=== PATIENT | female | born 1990 | race Two or more races ===

== ENCOUNTER → 2017-09-03 | Outpatient (CLI) | payer OTHER | END | disposition home or self-care (01) | LOC: LAB 15:59 | PROVIDERS: ATTEND Physician Assistant | DX: Z20.9 Contact with and (suspected) exposure to unspecified communicable disease (principal) | CPT/HCPCS: 36415; 86706; 86735; 86762; 86765; 86787 ==

== ENCOUNTER → 2020-06-28 | Outpatient (CLI) | payer BC ==
[2020-06-28 10:43] LABS: Basophils # (auto) 0.1 10 ^3/uL (0-0.2); Eosinophils # (auto) 0 10 ^3/uL (0-0.8); Hemoglobin 10.8 g/dL (12.2-16.2); Monocytes # (auto) 0.3 10 ^3/uL (0-1.3); Red Cell Distribution Width 19.3 % (11.8-14.3)
[2020-06-28 10:44] LABS: Basophils % (auto) 0.7 % (0.0-2.0); Eosinophils % (auto) 0.4 % (0.0-7.0); Hematocrit 33.9 % (36.0-46.0); Lymphocytes # (auto) 2.1 10 ^3/uL (0.4-5.4); Lymphocytes % (auto) 22.3 % (10.0-50.0); Mean Corpuscular Hgb Conc. 31.8 g/dL (32.0-36.0); Mean Corpuscular Volume 72.2 fL (80.0-100.0); Monocytes % (auto) 3.4 % (0.0-12.0); Neutrophils # (auto) 6.8 10 ^3/uL (1.6-8.6); Neutrophils % (auto) 73.2 % (37.0-80.0); Platelet Count (auto) 264 10^3/uL (140-450); Red Blood Cells 4.69 10^6/uL (4.0-5.20); White Blood Cell 9.2 10^3/uL (4.4-10.8)
[2020-06-28 11:19] LABS: Amphetamine Screen, Urine NEGATIVE (NEGATIVE); Barbiturate Scree,Urine NEGATIVE (NEGATIVE); Benzodiazephine Screen, Urine NEGATIVE (NEGATIVE); Cannabinoid Screen, Urine NEGATIVE (NEGATIVE); Cocaine Screen, Urine NEGATIVE (NEGATIVE); Opiate Scree,Urine NEGATIVE (NEGATIVE); Phencyclidine Screen, Urine NEGATIVE (NEGATIVE)
[2020-06-29 06:06] LABS: RPR Non Reactive (Non Reactive)
== END | disposition home or self-care (01) ==
LOC: LAB 10:11
PROVIDERS: ATTEND Specialist
DX: Z34.80 Encounter for supervision of other normal pregnancy, unspecified trimester (principal); Z31.430 Encounter of female for testing for genetic disease carrier status for procreative management; Z20.2 Contact with and (suspected) exposure to infections with a predominantly sexual mode of transmission; Z3A.00 Weeks of gestation of pregnancy not specified
CPT/HCPCS: 36415; 80307; 81025; 81220; 83036; 84144; 84702; 85025; 86592; 86762; 86850; 86900; 86901; 87340

== ENCOUNTER → 2020-08-21 | Outpatient (CLI) | payer BC | END | disposition home or self-care (01) | LOC: LAB 10:56 | PROVIDERS: ATTEND Specialist | DX: Z34.82 Encounter for supervision of other normal pregnancy, second trimester (principal); Z3A.19 19 weeks gestation of pregnancy | CPT/HCPCS: 86703 ==

== ENCOUNTER 2020-10-25 09:57 | Observation (INO) | payer BC ==
[~2020-10-25] VITALS: Ht 175.3 cm; Wt 128.8 kg
[2020-10-25] MEDS ORDERED: PREN-96 PO (11:34)
== END 2020-10-25 11:46 | disposition home or self-care (01) ==
LOC: LDRP 09:57
PROVIDERS: ADMIT Obstetrics & Gynecology; ATTEND Obstetrics & Gynecology
DX: O36.4XX0 Maternal care for intrauterine death, not applicable or unspecified (principal); Z3A.28 28 weeks gestation of pregnancy
CPT/HCPCS: 59025; 76818; 81002; G0378

== ENCOUNTER 2020-11-01 15:17 | Observation (INO) | payer BC ==
[~2020-11-01 15:17] MED LIST: PREN-96 PO
== END 2020-11-01 17:05 | disposition home or self-care (01) ==
LOC: LDRP 15:17
PROVIDERS: ADMIT Obstetrics & Gynecology; ATTEND Obstetrics & Gynecology
DX: Z34.83 Encounter for supervision of other normal pregnancy, third trimester (principal); Z3A.29 29 weeks gestation of pregnancy; Z87.59 Personal history of other complications of pregnancy, childbirth and the puerperium; Z79.899 Other long term (current) drug therapy
CPT/HCPCS: 59025; 76818; 81002; G0378

== ENCOUNTER 2020-11-08 12:57 | Observation (INO) | payer BC | END 2020-11-08 14:20 | disposition home or self-care (01) | LOC: LDRP 12:57 | PROVIDERS: ADMIT Obstetrics & Gynecology; ATTEND Obstetrics & Gynecology | DX: Z34.83 Encounter for supervision of other normal pregnancy, third trimester (principal); Z3A.30 30 weeks gestation of pregnancy | CPT/HCPCS: 59025; 76818; 81002; G0378 ==

== ENCOUNTER 2020-11-15 10:34 | Observation (INO) | payer BC ==
[2020-11-15] MEDS ORDERED: FERR28TA2 PO (11:12)
== END 2020-11-15 11:45 | disposition home or self-care (01) ==
LOC: LDRP 10:34
PROVIDERS: ADMIT Obstetrics & Gynecology; ATTEND Obstetrics & Gynecology
DX: O09.293 Supervision of pregnancy with other poor reproductive or obstetric history, third trimester (principal); O32.1XX0 Maternal care for breech presentation, not applicable or unspecified; Z3A.31 31 weeks gestation of pregnancy
CPT/HCPCS: 59025; 76818; 81002; G0378

== ENCOUNTER 2020-11-22 08:38 | Observation (INO) | payer BC ==
[~2020-11-22 08:38] MED LIST changes: +FERR28TA2 PO
== END 2020-11-22 10:43 | disposition home or self-care (01) ==
LOC: LDRP 08:38
PROVIDERS: ADMIT Specialist; ATTEND Specialist
DX: O36.4XX0 Maternal care for intrauterine death, not applicable or unspecified (principal); O26.853 Spotting complicating pregnancy, third trimester; Z3A.32 32 weeks gestation of pregnancy
CPT/HCPCS: 59025; 76818; 81002; G0378

== ENCOUNTER 2020-11-29 08:22 | Observation (INO) | payer BC | END 2020-11-29 10:22 | disposition home or self-care (01) | LOC: LDRP 08:22 | PROVIDERS: ADMIT Obstetrics & Gynecology; ATTEND Obstetrics & Gynecology | DX: Z34.83 Encounter for supervision of other normal pregnancy, third trimester (principal); Z87.59 Personal history of other complications of pregnancy, childbirth and the puerperium; Z3A.33 33 weeks gestation of pregnancy | CPT/HCPCS: 59025; 76818; 81002; G0378 ==

== ENCOUNTER 2020-12-06 08:28 | Observation (INO) | payer BC | END 2020-12-06 09:37 | disposition home or self-care (01) | LOC: LDRP 08:28 | PROVIDERS: ADMIT Obstetrics & Gynecology; ATTEND Obstetrics & Gynecology | DX: Z34.83 Encounter for supervision of other normal pregnancy, third trimester (principal); Z87.59 Personal history of other complications of pregnancy, childbirth and the puerperium; Z3A.34 34 weeks gestation of pregnancy | CPT/HCPCS: 59025; 76818; 81002; G0378 ==

== ENCOUNTER 2020-12-13 10:25 | Observation (INO) | payer BC | END 2020-12-13 11:49 | disposition home or self-care (01) | LOC: LDRP 10:25 | PROVIDERS: ADMIT Obstetrics & Gynecology; ATTEND Obstetrics & Gynecology | DX: Z34.83 Encounter for supervision of other normal pregnancy, third trimester (principal); Z87.59 Personal history of other complications of pregnancy, childbirth and the puerperium; Z3A.35 35 weeks gestation of pregnancy | CPT/HCPCS: 59025; 76818; 81002; G0378 ==

== ENCOUNTER 2020-12-20 10:59 | Observation (INO) | payer BC | END 2020-12-20 13:40 | disposition home or self-care (01) | LOC: LDRP 10:59 | PROVIDERS: ADMIT Obstetrics & Gynecology; ATTEND Obstetrics & Gynecology | DX: O36.4XX0 Maternal care for intrauterine death, not applicable or unspecified (principal); Z3A.36 36 weeks gestation of pregnancy | CPT/HCPCS: 59025; 76818; 81002; G0378 ==

== ENCOUNTER 2020-12-26 10:09 | Observation (INO) | payer BC | END 2020-12-26 12:05 | disposition home or self-care (01) | LOC: LDRP 10:09 | PROVIDERS: ADMIT Specialist; ATTEND Specialist | DX: O09.293 Supervision of pregnancy with other poor reproductive or obstetric history, third trimester (principal); O32.1XX0 Maternal care for breech presentation, not applicable or unspecified; Z3A.37 37 weeks gestation of pregnancy | CPT/HCPCS: 59025; 76818; 81002; 94760; G0378 ==

== ENCOUNTER 2021-01-01 19:04 | Observation (INO) | payer BC | END 2021-01-01 22:21 | disposition home or self-care (01) | LOC: LDRP 19:04 | PROVIDERS: ADMIT Specialist; ATTEND Specialist | DX: O36.5930 Maternal care for other known or suspected poor fetal growth, third trimester, not applicable or unspecified (principal); O99.343 Other mental disorders complicating pregnancy, third trimester; F32.9 Major depressive disorder, single episode, unspecified; Z3A.38 38 weeks gestation of pregnancy | CPT/HCPCS: 59025; 76818; 81002; G0378 ==

== ENCOUNTER → 2021-01-03 | Outpatient (CLI) | payer BC | END | disposition home or self-care (01) | LOC: OB 19:05 | PROVIDERS: ATTEND Specialist | DX: Z20.822 Contact with and (suspected) exposure to COVID-19 (principal) | CPT/HCPCS: C9803; U0003 ==

== ENCOUNTER 2021-01-05 06:12 | Inpatient (IN) | payer BC ==
[~2021-01-05] VITALS: Ht 175.3 cm; Wt 136.1 kg
[2021-01-05] VITALS (18 sets, daily range): BP systolic 86–131; BP diastolic 39–69
[2021-01-05] MEDS ORDERED: ceFAZolin 1GM/50ML 50 ML IV ONE (06:45)
[2021-01-05] MEDS ORDERED: LACTATED RINGER'S 1,000 ML IV ONE (06:45)
[2021-01-05 07:34] LABS: INR 1.03 (0.9-1.15); Partial Thromboplastin Time 29.2 sec (23.0-31.2)
[2021-01-05 07:37] LABS: Urine Bacteria FEW /hpf (None Seen); Urine Blood Negative /uL (Negative); Urine Mucus FEW (None Seen); Urine Specific Gravity 1.029 (1.001-1.035); Urine WBC 12 /hpf (0 - 5)
[2021-01-05 07:39] LABS: Albumin 2.5 g/dL (3.4-5.0); Calcium 8.3 mg/dL (8.5-10.1); Potassium 3.7 mmol/L (3.5-5.1)
[2021-01-05 07:40] LABS: Basophils # (auto) 0 10 ^3/uL (0-0.2); Eosinophils # (auto) 0.1 10 ^3/uL (0-0.8); Hemoglobin 9.3 g/dL (12.2-16.2); Lymphocytes # (auto) 2.5 10 ^3/uL (0.4-5.4); Neutrophils # (auto) 8.1 10 ^3/uL (1.6-8.6)
[2021-01-05 07:43] LABS: Basophils % (auto) 0.1 % (0.0-2.0); Eosinophils % (auto) 0.6 % (0.0-7.0); Hematocrit 29.2 % (36.0-46.0); Lymphocytes % (auto) 22.1 % (10.0-50.0); Mean Corpuscular Hemoglobin 22.3 pg (28.0-32.0); Mean Corpuscular Hgb Conc. 31.9 g/dL (32.0-36.0); Mean Corpuscular Volume 69.8 fL (80.0-100.0); Monocytes # (auto) 0.5 10 ^3/uL (0-1.3); Monocytes % (auto) 4.6 % (0.0-12.0); Neutrophils % (auto) 72.6 % (37.0-80.0); Nucleated Red Blood Cells % 0.4 %; Platelet Count (auto) 296 10^3/uL (140-450); Red Blood Cells 4.18 10^6/uL (4.0-5.20); Red Cell Distribution Width 18.7 % (11.8-14.3); White Blood Cell 11.1 10^3/uL (4.4-10.8)
[2021-01-05 07:48] LABS: Bilirubin, Total 0.6 mg/dL (0.2-1.0); Total Protein 6.8 g/dL (6.4-8.2)
[2021-01-05] MEDS: LACTATED RINGER'S 1,000 ML IV SCH ×2 (08:13→16:06)
[2021-01-05] MEDS ORDERED: ceFAZolin 1GM 2 GM in D5W 5% 100 ML IV ONE (08:15)
[2021-01-05] MEDS ORDERED: TETRACAINE 1% INJ 2 ML VIAL IJ ONE (10:21)
[2021-01-05] MEDS ORDERED: MORPHINE SULF(PF) 0.5MG/ML 10ML VIAL ONE (10:22)
[2021-01-05] MEDS ORDERED: fentaNYL CITRATE 100 MCG/2 ML VL ONE (10:37)
[2021-01-05] MEDS ORDERED: ePHEDrine SULFATE 50 MG/ML AMP ONE (11:30)
[2021-01-05] MEDS ORDERED: oxyTOCIN 10 UNIT/ML 10ML VIAL ONE (11:30)
[2021-01-05] MEDS ORDERED: KETOROLAC TROMETH 30 MG/ML 1ML VIAL IV PRN ×2 (11:45→12:00)
[2021-01-05] MEDS ORDERED: LACTATED RINGER'S 1,000 ML IV SCH (11:45)
[2021-01-05] MEDS ORDERED: GUM (CHEWING) 1 GUM CHEW CHEW ONE (11:45)
[2021-01-05] MEDS ORDERED: ONDANSETRON HCL 4 MG/2 ML VIAL IV PRN ×3 (11:45→12:00)
[2021-01-05] MEDS ORDERED: ACETAMINOPHEN IV 1000 MG/100ML (10MG/ML) IV PRN (11:45)
[2021-01-05] MEDS ORDERED: ceFAZolin 1GM/50ML 50 ML IV SCH (11:45)
[2021-01-05] MEDS ORDERED: HYDROmorphone HCL 2 MG/ML VL IV PRN ×3 (11:45→12:00)
[2021-01-05] MEDS ORDERED: NALOXONE HCL 0.4 MG/ML VIAL IV PRN (12:00)
[2021-01-05] MEDS ORDERED: NALBUPHINE HCL 10 MG/1ml INJECTION SUBCUT ONE (12:00)
[2021-01-05] MEDS ORDERED: DexAMETHasone SOD PHOS 10MG/1ML VIAL INJ IV PRN (12:00)
[2021-01-05] MEDS: PROMETHAZINE HCL 25 MG/ML 1ML IV PRN ×2 (14:58→19:28)
[2021-01-05] MEDS: ceFAZolin 1GM/50ML 50 ML IV SCH (17:49)
[2021-01-05] MEDS: diphenhdrAMINE HCL 50 MG/1 ML VL IV PRN (19:51)
[2021-01-06] VITALS (17 sets, daily range): BP systolic 82–104; BP diastolic 38–54
[2021-01-06] MEDS: diphenhdrAMINE HCL 50 MG/1 ML VL IV PRN (01:50)
[2021-01-06] MEDS: ceFAZolin 1GM/50ML 50 ML IV SCH (01:51)
[2021-01-06] MEDS: LACTATED RINGER'S 1,000 ML IV SCH ×3 (03:45→14:59)
[2021-01-06 05:07] LABS: RPR Non Reactive (Non Reactive)
[2021-01-06 07:27] LABS: Basophils # (auto) 0 10 ^3/uL (0-0.2); Eosinophils # (auto) 0 10 ^3/uL (0-0.8); Eosinophils % (auto) 0.4 % (0.0-7.0); Lymphocytes # (auto) 2.3 10 ^3/uL (0.4-5.4); White Blood Cell 12.2 10^3/uL (4.4-10.8)
[2021-01-06 07:29] LABS: Basophils % (auto) 0.3 % (0.0-2.0); Hematocrit 26.2 % (36.0-46.0); Hemoglobin 8.3 g/dL (12.2-16.2); Lymphocytes % (auto) 19.2 % (10.0-50.0); Mean Corpuscular Hemoglobin 22.3 pg (28.0-32.0); Mean Corpuscular Hgb Conc. 31.9 g/dL (32.0-36.0); Mean Corpuscular Volume 69.9 fL (80.0-100.0); Monocytes # (auto) 0.6 10 ^3/uL (0-1.3); Monocytes % (auto) 4.5 % (0.0-12.0); Neutrophils # (auto) 9.2 10 ^3/uL (1.6-8.6); Neutrophils % (auto) 75.6 % (37.0-80.0); Nucleated Red Blood Cells % 0.1 %; Platelet Count (auto) 263 10^3/uL (140-450); Red Blood Cells 3.74 10^6/uL (4.0-5.20); Red Cell Distribution Width 19.1 % (11.8-14.3)
[2021-01-06] MEDS ORDERED: ceFAZolin 1GM/50ML 50 ML IV ONE (08:00)
[2021-01-06] MEDS ORDERED: ACETAMINOPHEN IV 1000 MG/100ML (10MG/ML) IV ONE (11:30)
[2021-01-06] MEDS ORDERED: HYDROcodone-ACET 5/325MG TAB PO PRN (12:00)
[2021-01-06] MEDS ORDERED: SIMETHICONE 80 MG CHEWABLE TABLET PO PRN (12:00)
[2021-01-06] MEDS: HYDROcodone-ACET 5/325MG TAB PO PRN ×2 (13:58→22:40)
[2021-01-06] MEDS: DOCUSATE SOD 100 MG CAP PO SCH (22:42)
[2021-01-07] MEDS: HYDROcodone-ACET 5/325MG TAB PO PRN ×3 (03:04→16:56)
[2021-01-07 03:30] VITALS: BP 98/53
[2021-01-07] MEDS: DOCUSATE SOD 100 MG CAP PO SCH ×2 (10:22→22:10)
[2021-01-07] MEDS: IBUPROFEN 800 MG TAB PO PRN ×2 (10:22→22:11)
[2021-01-07 11:00] VITALS: BP 96/55
[2021-01-07 15:00] VITALS: BP 86/43
[2021-01-07 19:00] VITALS: BP 138/80
[2021-01-07 23:00] VITALS: BP 103/62
[2021-01-08 03:00] VITALS: BP 100/59
[2021-01-08] MEDS: HYDROcodone-ACET 5/325MG TAB PO PRN (04:59)
[2021-01-08 07:00] VITALS: BP 105/55
[2021-01-08] MEDS: DOCUSATE SOD 100 MG CAP PO SCH (07:09)
== END 2021-01-08 10:37 | disposition home or self-care (01) | DRG 788 ==
LOC: LDRP 06:12
PROVIDERS: ADMIT Specialist; ATTEND Specialist
PROC: 10D00Z1 Extraction of Products of Conception, Low, Open Approach (ICD-10-PCS; principal; 2021-01-05 10:20)
DX: O32.1XX0 Maternal care for breech presentation, not applicable or unspecified (principal); O34.03 Maternal care for unspecified congenital malformation of uterus, third trimester; Q51.3 Bicornate uterus; Z3A.39 39 weeks gestation of pregnancy; Z37.0 Single live birth; O99.214 Obesity complicating childbirth; E66.01 Morbid (severe) obesity due to excess calories
CPT/HCPCS: 36415; 59025; 76815; 80053; 81001; 81002; 85025; 85610; 85730; 86592; 86850; 86900; 86901; 86920; 94760; 94762; 96360; 96361; 96374; 96375; G0378; J0131; J0690; J1885; J2405; J2590; J7060

== ENCOUNTER → 2021-06-19 | Outpatient (CLI) | payer BC ==
[2021-06-19 10:47] LABS: Basophils # (auto) 0.1 10 ^3/uL (0-0.2); Basophils % (auto) 0.6 % (0.0-2.0); Eosinophils # (auto) 0.2 10 ^3/uL (0-0.8); Eosinophils % (auto) 1.5 % (0.0-7.0); Hematocrit 33.2 % (36.0-46.0); Hemoglobin 10.2 g/dL (12.2-16.2); Lymphocytes # (auto) 2.8 10 ^3/uL (0.4-5.4); Lymphocytes % (auto) 28.5 % (10.0-50.0); Mean Corpuscular Hemoglobin 20.1 pg (28.0-32.0); Mean Corpuscular Hgb Conc. 30.6 g/dL (32.0-36.0); Mean Corpuscular Volume 65.5 fL (80.0-100.0); Monocytes # (auto) 0.4 10 ^3/uL (0-1.3); Monocytes % (auto) 4.4 % (0.0-12.0); Neutrophils # (auto) 6.5 10 ^3/uL (1.6-8.6); Nucleated Red Blood Cells % 0.1 %; Red Blood Cells 5.06 10^6/uL (4.0-5.20); Red Cell Distribution Width 18.9 % (11.8-14.3)
[2021-06-19 11:09] LABS: Albumin 3.1 g/dL (3.4-5.0); Calcium 8.6 mg/dL (8.5-10.1); Potassium 3.9 mmol/L (3.5-5.1)
[2021-06-19 11:12] LABS: Urine Bacteria FEW /hpf (None Seen); Urine Blood Negative /uL (Negative); Urine Hyaline Cast FEW /lpf (0 - 2); Urine Mucus FEW (None Seen); Urine Specific Gravity 1.027 (1.001-1.035); Urine WBC 18 /hpf (0 - 5)
[2021-06-19 11:16] LABS: BUN/Creatinine Ratio 29.3; Bilirubin, Total 0.7 mg/dL (0.2-1.0)
== END | disposition home or self-care (01) ==
LOC: LAB 10:24
PROVIDERS: ATTEND Student in an Organized Health Care Education/Training Program
DX: O99.345 Other mental disorders complicating the puerperium (principal); E66.01 Morbid (severe) obesity due to excess calories; R73.9 Hyperglycemia, unspecified
CPT/HCPCS: 36415; 80053; 81001; 83036; 84443; 85025

== ENCOUNTER 2023-11-05 08:29 | Emergency (ER) | payer BC, OTHER ==
[~2023-11-05] VITALS: Ht 175.3 cm; Wt 137.0 kg
[~2023-11-05 08:29] MED LIST changes: -FERR28TA2 PO; +FERR28TA4 PO
[2023-11-05 08:59] LABS: Basophils # (auto) 0.1 10 ^3/uL (0-0.2); Eosinophils # (auto) 0.1 10 ^3/uL (0-0.8); Eosinophils % (auto) 0.7 % (0.0-7.0); Lymphocytes # (auto) 2.1 10 ^3/uL (0.4-5.4); Monocytes # (auto) 0.4 10 ^3/uL (0-1.3)
[2023-11-05 09:02] LABS: Basophils % (auto) 0.5 % (0.0-2.0); Hematocrit 29.7 % (36.0-46.0); Hemoglobin 8.8 g/dL (12.2-16.2); Lymphocytes % (auto) 21.7 % (10.0-50.0); Mean Corpuscular Hemoglobin 18.7 pg (28.0-32.0); Mean Corpuscular Hgb Conc. 29.7 g/dL (32.0-36.0); Mean Corpuscular Volume 62.9 fL (80.0-100.0); Monocytes % (auto) 4.3 % (0.0-12.0); Neutrophils % (auto) 72.8 % (37.0-80.0); Red Blood Cells 4.72 10^6/uL (4.0-5.20); White Blood Cell 9.7 10^3/uL (4.4-10.8)
[2023-11-05 09:07] LABS: Red Cell Distribution Width 20.3 % (11.8-14.3)
[2023-11-05 09:27] LABS: Chloride 106 mmol/L (98-107); Potassium 3.7 mmol/L (3.5-5.1); Sodium 137 mmol/L (136-145)
[2023-11-05 09:28] LABS: Anion Gap 8 (5-15); Calcium 8.9 mg/dL (8.5-10.1); Carbon Dioxide 23 mmol/L (20-30)
[2023-11-05 09:33] LABS: BUN/Creatinine Ratio 15.9 (10.0-20.0); Blood Urea Nitrogen 10 mg/dL (9-23); Glucose 93 mg/dL (74-106)
[2023-11-05 09:54] LABS: Anisocytosis Slight; Hypochromia Marked; Platelet Estimate Adequate
[2023-11-05 11:17] LABS: Urine Bacteria NONE SEEN /hpf (None Seen); Urine Blood 3+ /uL (Negative); Urine Clarity HAZY (Clear); Urine Color Yellow (Yellow); Urine Mucus FEW (None Seen); Urine Protein, UAD TRACE (Negative); Urine Specific Gravity 1.031 (1.001-1.035); Urine Urobilinogen Normal (Negative); Urine WBC 26 /hpf (0 - 5)
[2023-11-05] MEDS ORDERED: CEFD300C2 PO (12:35)
[2023-11-05 12:44] VITALS: BP 113/69; PULSE 68; RESP 18; O2SAT 68
== END 2023-11-05 12:46 | disposition home or self-care (01) ==
LOC: ER 08:29
DX: O34.01 Maternal care for unspecified congenital malformation of uterus, first trimester (principal); R10.2 Pelvic and perineal pain; O23.41 Unspecified infection of urinary tract in pregnancy, first trimester; O20.8 Other hemorrhage in early pregnancy; O99.011 Anemia complicating pregnancy, first trimester; D50.9 Iron deficiency anemia, unspecified; Q51.3 Bicornate uterus; Z3A.09 9 weeks gestation of pregnancy; Z98.890 Other specified postprocedural states; Z79.899 Other long term (current) drug therapy
CPT/HCPCS: 36415; 76801; 76817; 80048; 81001; 84702; 85025

== ENCOUNTER 2024-03-12 09:48 | Observation (INO) | payer BC ==
[~2024-03-12 09:48] MED LIST changes: +CEFD300C2 PO
[2024-03-12] MEDS ORDERED: CEPH250C PO (15:20)
[2024-03-12 15:51] LABS: Urine Bacteria FEW /hpf (None Seen); Urine Blood TRACE /uL (Negative); Urine Clarity Turbid (Clear); Urine Color Yellow (Yellow); Urine Mucus FEW (None Seen); Urine Protein, UAD TRACE (Negative); Urine Specific Gravity 1.021 (1.001-1.035); Urine Urobilinogen Normal (Negative); Urine WBC 8 /hpf (0 - 5)
== END 2024-03-12 15:26 | disposition home or self-care (01) ==
LOC: LDRP 14:04 → UNDOADMOB 14:04 → LDRP 14:08
PROVIDERS: ADMIT Obstetrics & Gynecology; ATTEND Obstetrics & Gynecology
DX: O23.43 Unspecified infection of urinary tract in pregnancy, third trimester (principal); Z3A.28 28 weeks gestation of pregnancy; Z87.59 Personal history of other complications of pregnancy, childbirth and the puerperium
CPT/HCPCS: 59025; 76815; 81001; 81002; 87086; 94760; G0378

== ENCOUNTER → 2024-03-15 | Outpatient (CLI) | payer BC ==
[~2024-03-15] MED LIST changes: +CEPH250C PO
[2024-03-15 08:35] LABS: Basophils # (auto) 0 10 ^3/uL (0-0.2); Eosinophils # (auto) 0.1 10 ^3/uL (0-0.8); Eosinophils % (auto) 1.1 % (0.0-7.0); Lymphocytes # (auto) 2.6 10 ^3/uL (0.4-5.4); Mean Corpuscular Volume 69.5 fL (80.0-100.0); Monocytes # (auto) 0.6 10 ^3/uL (0-1.3); Neutrophils # (auto) 7.6 10 ^3/uL (1.6-8.6); Nucleated Red Blood Cells % 0.1 %; Red Cell Distribution Width 19.6 % (11.8-14.3)
[2024-03-15 08:37] LABS: Basophils % (auto) 0.3 % (0.0-2.0); Hematocrit 28.4 % (36.0-46.0); Hemoglobin 9.1 g/dL (12.2-16.2); Lymphocytes % (auto) 24.1 % (10.0-50.0); Mean Corpuscular Hemoglobin 22.4 pg (28.0-32.0); Mean Corpuscular Hgb Conc. 32.2 g/dL (32.0-36.0); Monocytes % (auto) 5.2 % (0.0-12.0); Neutrophils % (auto) 69.3 % (37.0-80.0); Red Blood Cells 4.09 10^6/uL (4.0-5.20); White Blood Cell 10.9 10^3/uL (4.4-10.8)
[2024-03-15 08:45] LABS: Alanine Aminotransferase 20 U/L (7-40); Albumin 3.5 g/dL (3.2-4.8); Alkaline Phosphatase 79 U/L (46-116); Anion Gap 6 (5-15); Aspartate Aminotransferase 14 U/L (13-40); Bilirubin, Total 0.6 mg/dL (0.2-1.0); Blood Urea Nitrogen 7 mg/dL (9-23); Calcium 8.9 mg/dL (8.5-10.1); Carbon Dioxide 24 mmol/L (20-30); Chloride 107 mmol/L (98-107); Glucose 83 mg/dL (74-106); Potassium 4.3 mmol/L (3.5-5.1); Sodium 137 mmol/L (136-145)
[2024-03-15 08:46] LABS: Total Protein 5.8 g/dL (5.7-8.2)
[2024-03-16 07:06] LABS: RPR Non Reactive (Non Reactive)
[2024-03-16 13:07] LABS: Chlamydia Trachomatis, NAA Negative (Negative); Neisseria gonorrhoeae, NAA Negative (Negative)
== END | disposition home or self-care (01) ==
LOC: LAB 08:08
PROVIDERS: ATTEND Obstetrics & Gynecology
DX: Z34.80 Encounter for supervision of other normal pregnancy, unspecified trimester (principal)
CPT/HCPCS: 36415; 80053; 82951; 83036; 84443; 85025; 86592; 86703

== ENCOUNTER 2024-03-19 09:09 | Observation (INO) | payer BC | END 2024-03-19 10:38 | disposition home or self-care (01) | LOC: LDRP 09:09 → UNDOADMOB 09:09 → LDRP 09:16 | PROVIDERS: ADMIT Obstetrics & Gynecology; ATTEND Obstetrics & Gynecology | DX: Z34.83 Encounter for supervision of other normal pregnancy, third trimester (principal); Z3A.29 29 weeks gestation of pregnancy | CPT/HCPCS: 59025; 76815; 81002; 94760; G0378 ==

== ENCOUNTER 2024-03-26 17:42 | Observation (INO) | payer BC | END 2024-03-26 19:19 | disposition home or self-care (01) | LOC: LDRP 17:42 | PROVIDERS: ADMIT Obstetrics & Gynecology; ATTEND Obstetrics & Gynecology | DX: O09.293 Supervision of pregnancy with other poor reproductive or obstetric history, third trimester (principal); Z3A.30 30 weeks gestation of pregnancy; Z87.59 Personal history of other complications of pregnancy, childbirth and the puerperium | CPT/HCPCS: 59025; 76815; 81002; 94760; G0378 ==

== ENCOUNTER 2024-04-02 09:28 | Observation (INO) | payer BC | END 2024-04-02 11:15 | disposition home or self-care (01) | LOC: LDRP 09:28 | PROVIDERS: ADMIT Obstetrics & Gynecology; ATTEND Obstetrics & Gynecology | DX: Z34.83 Encounter for supervision of other normal pregnancy, third trimester (principal); Z3A.31 31 weeks gestation of pregnancy; Z87.59 Personal history of other complications of pregnancy, childbirth and the puerperium | CPT/HCPCS: 59025; 76815; 76817; 81002; G0378 ==

== ENCOUNTER 2024-04-02 11:38 | Observation (INO) | payer BC | END 2024-04-02 11:39 | disposition home or self-care (01) | LOC: LDRP 11:38 | PROVIDERS: ADMIT Obstetrics & Gynecology; ATTEND Obstetrics & Gynecology | DX: Z34.83 Encounter for supervision of other normal pregnancy, third trimester (principal); Z3A.31 31 weeks gestation of pregnancy ==

== ENCOUNTER 2024-04-02 16:39 | Observation (INO) | payer BC | END 2024-04-02 16:40 | disposition home or self-care (01) | LOC: LDRP 16:39 | PROVIDERS: ADMIT Obstetrics & Gynecology; ATTEND Obstetrics & Gynecology | DX: Z34.83 Encounter for supervision of other normal pregnancy, third trimester (principal); Z3A.31 31 weeks gestation of pregnancy ==

== ENCOUNTER 2024-04-05 08:30 | Observation (INO) | payer BC ==
[2024-04-05] MEDS ORDERED: LACTATED RINGER'S 1,000 ML IV ONE (13:30)
== END 2024-04-05 15:46 | disposition home or self-care (01) ==
LOC: LDRP 11:10
PROVIDERS: ADMIT Obstetrics & Gynecology; ATTEND Obstetrics & Gynecology
DX: O36.8330 Maternal care for abnormalities of the fetal heart rate or rhythm, third trimester, not applicable or unspecified (principal); Z3A.31 31 weeks gestation of pregnancy; Z87.59 Personal history of other complications of pregnancy, childbirth and the puerperium; Z98.890 Other specified postprocedural states
CPT/HCPCS: 59025; 76815; 76818; 81002; 94760; 96360; 96361; G0378

== ENCOUNTER 2024-04-09 09:47 | Observation (INO) | payer BC | END 2024-04-09 11:15 | disposition home or self-care (01) | LOC: LDRP 09:47 → UNDOADMOB 09:47 → LDRP 09:59 → UNDODISOB 11:15 | PROVIDERS: ADMIT Obstetrics & Gynecology; ATTEND Obstetrics & Gynecology | DX: O26.873 Cervical shortening, third trimester (principal); O09.523 Supervision of elderly multigravida, third trimester; Z3A.32 32 weeks gestation of pregnancy; Z87.59 Personal history of other complications of pregnancy, childbirth and the puerperium | CPT/HCPCS: 59025; 76818; 81002; G0378 ==

== ENCOUNTER 2024-04-13 14:10 | Observation (INO) | payer BC | END 2024-04-13 16:13 | disposition home or self-care (01) | LOC: UNDOADMOB 14:10 → LDRP 14:10 | PROVIDERS: ADMIT Obstetrics & Gynecology; ATTEND Obstetrics & Gynecology | DX: O26.873 Cervical shortening, third trimester (principal); O09.523 Supervision of elderly multigravida, third trimester; Z3A.32 32 weeks gestation of pregnancy | CPT/HCPCS: 59025; 76817; 76818; 81002; 94760; G0378 ==

== ENCOUNTER 2024-04-20 18:58 | Observation (INO) | payer BC | END 2024-04-20 20:23 | disposition home or self-care (01) | LOC: LDRP 18:58 | PROVIDERS: ADMIT Obstetrics & Gynecology; ATTEND Obstetrics & Gynecology | DX: O26.873 Cervical shortening, third trimester (principal); Z3A.33 33 weeks gestation of pregnancy | CPT/HCPCS: 59025; 76818; 81002; 94760; G0378 ==

== ENCOUNTER 2024-04-23 18:14 | Observation (INO) | payer BC | END 2024-04-23 20:00 | disposition home or self-care (01) | LOC: LDRP 18:14 | PROVIDERS: ADMIT Obstetrics & Gynecology; ATTEND Obstetrics & Gynecology | DX: O42.913 Preterm premature rupture of membranes, unspecified as to length of time between rupture and onset of labor, third trimester (principal); Z3A.34 34 weeks gestation of pregnancy | CPT/HCPCS: 59025; 76818; 81002; 94760; G0378 ==

== ENCOUNTER 2024-04-28 14:46 | Observation (INO) | payer BC | END 2024-04-28 16:52 | disposition home or self-care (01) | LOC: UNDOADMOB 14:46 → LDRP 14:46 | PROVIDERS: ADMIT Obstetrics & Gynecology; ATTEND Obstetrics & Gynecology | DX: O26.873 Cervical shortening, third trimester (principal); Z3A.34 34 weeks gestation of pregnancy | CPT/HCPCS: 59025; 76818; 81002; 94760; G0378 ==

== ENCOUNTER 2024-05-04 17:26 | Observation (INO) | payer BC | END 2024-05-04 18:59 | disposition home or self-care (01) | LOC: LDRP 17:26 | PROVIDERS: ADMIT Obstetrics & Gynecology; ATTEND Obstetrics & Gynecology | DX: O62.9 Abnormality of forces of labor, unspecified (principal); Z3A.35 35 weeks gestation of pregnancy; Z79.899 Other long term (current) drug therapy | CPT/HCPCS: 59025; 76818; 81002; 94760; G0378 ==

== ENCOUNTER 2024-05-07 17:25 | Observation (INO) | payer BC ==
[2024-05-07] MEDS ORDERED: CEPH500C PO (18:43)
== END 2024-05-07 19:00 | disposition home or self-care (01) ==
LOC: LDRP 17:25
PROVIDERS: ADMIT Obstetrics & Gynecology; ATTEND Obstetrics & Gynecology
DX: O26.873 Cervical shortening, third trimester (principal); O60.03 Preterm labor without delivery, third trimester; Z3A.36 36 weeks gestation of pregnancy; Z87.59 Personal history of other complications of pregnancy, childbirth and the puerperium; Z79.899 Other long term (current) drug therapy
CPT/HCPCS: 59025; 76817; 76818; 81002; 87086; 94760; G0378

== ENCOUNTER 2024-05-11 17:15 | Observation (INO) | payer BC ==
[~2024-05-11 17:15] MED LIST changes: -CEFD300C2 PO; -CEPH250C PO; +CEPH500C PO
== END 2024-05-11 18:56 | disposition home or self-care (01) ==
LOC: LDRP 17:15
PROVIDERS: ADMIT Obstetrics & Gynecology; ATTEND Obstetrics & Gynecology
DX: O24.419 Gestational diabetes mellitus in pregnancy, unspecified control (principal); O23.43 Unspecified infection of urinary tract in pregnancy, third trimester; Z3A.36 36 weeks gestation of pregnancy; Z79.899 Other long term (current) drug therapy
CPT/HCPCS: 59025; 76818; 81002; 94760; G0378

== ENCOUNTER 2024-05-14 17:25 | Observation (INO) | payer BC ==
[~2024-05-14] VITALS: Ht 175.3 cm; Wt 136.1 kg
== END 2024-05-14 18:51 | disposition home or self-care (01) ==
LOC: LDRP 17:25
PROVIDERS: ADMIT Obstetrics & Gynecology; ATTEND Obstetrics & Gynecology
DX: O26.873 Cervical shortening, third trimester (principal); Z3A.37 37 weeks gestation of pregnancy; Z87.59 Personal history of other complications of pregnancy, childbirth and the puerperium
CPT/HCPCS: 59025; 76818; 81002; 94760; G0378

== ENCOUNTER 2024-05-17 11:34 | Observation (INO) | payer BC | END 2024-05-17 19:04 | disposition home or self-care (01) | LOC: LDRP 16:55 | PROVIDERS: ADMIT Obstetrics & Gynecology; ATTEND Obstetrics & Gynecology | DX: Z36.89 Encounter for other specified antenatal screening (principal); Z3A.37 37 weeks gestation of pregnancy | CPT/HCPCS: 59025; 76818; 81002; 94760; G0378 ==

== ENCOUNTER 2024-05-20 14:20 | Observation (INO) | payer BC | END 2024-05-20 16:23 | disposition home or self-care (01) | LOC: LDRP 14:20 → UNDOADMOB 14:20 → LDRP 14:29 → UNDODISOB 16:23 | PROVIDERS: ADMIT Obstetrics & Gynecology; ATTEND Obstetrics & Gynecology | DX: O36.4XX0 Maternal care for intrauterine death, not applicable or unspecified (principal); Z3A.37 37 weeks gestation of pregnancy | CPT/HCPCS: 59025; 76818; 81002; G0378 ==

== ENCOUNTER 2024-05-24 05:00 | Observation (INO) | payer BC | END 2024-05-24 18:00 | disposition home or self-care (01) | LOC: LDRP 16:21 | PROVIDERS: ADMIT Obstetrics & Gynecology; ATTEND Obstetrics & Gynecology | DX: O69.81X0 Labor and delivery complicated by cord around neck, without compression, not applicable or unspecified (principal); Z3A.38 38 weeks gestation of pregnancy; Z79.899 Other long term (current) drug therapy | CPT/HCPCS: 59025; 76818; 81002; 94760; G0378 ==

== ENCOUNTER 2024-05-27 14:35 | Observation (INO) | payer BC ==
[~2024-05-27] VITALS: Ht 175.3 cm; Wt 151.5 kg
== END 2024-05-27 16:06 | disposition home or self-care (01) ==
LOC: LDRP 14:35
PROVIDERS: ADMIT Obstetrics & Gynecology; ATTEND Obstetrics & Gynecology
DX: O69.81X0 Labor and delivery complicated by cord around neck, without compression, not applicable or unspecified (principal); Z3A.38 38 weeks gestation of pregnancy
CPT/HCPCS: 59025; 76818; 81002; 94760; G0378

== ENCOUNTER 2024-05-28 05:25 | Inpatient (IN) | payer BC ==
[2024-05-27 16:17] LABS: Basophils # (auto) 0 10 ^3/uL (0-0.2); Basophils % (auto) 0.3 % (0.0-2.0); Eosinophils # (auto) 0 10 ^3/uL (0-0.8); Eosinophils % (auto) 0.3 % (0.0-7.0); Hematocrit 31.4 % (36.0-46.0); Hemoglobin 9.8 g/dL (12.2-16.2); Lymphocytes # (auto) 1.9 10 ^3/uL (0.4-5.4); Lymphocytes % (auto) 17.1 % (10.0-50.0); Mean Corpuscular Hemoglobin 22.4 pg (28.0-32.0); Mean Corpuscular Hgb Conc. 31.2 g/dL (32.0-36.0); Mean Corpuscular Volume 71.7 fL (80.0-100.0); Monocytes # (auto) 0.5 10 ^3/uL (0-1.3); Monocytes % (auto) 4.3 % (0.0-12.0); Neutrophils # (auto) 8.4 10 ^3/uL (1.6-8.6); Platelet Count (auto) 254 10^3/uL (140-450); Red Blood Cells 4.38 10^6/uL (4.0-5.20); White Blood Cell 10.8 10^3/uL (4.4-10.8)
[2024-05-27 16:19] LABS: Red Cell Distribution Width 20.7 % (11.8-14.3)
[2024-05-27 16:37] LABS: Urine Bacteria FEW /hpf (None Seen); Urine Blood 1+ /uL (Negative); Urine Clarity Ex.Turbid (Clear); Urine Color Light-Orange (Yellow); Urine Mucus FEW (None Seen); Urine Protein, UAD 1+ (Negative); Urine Specific Gravity 1.022 (1.001-1.035); Urine Urobilinogen Normal (Negative); Urine WBC 1036 /hpf (0 - 5); Urine pH 5.5 (5.0-9.0)
[2024-05-27 16:38] LABS: Alanine Aminotransferase 11 U/L (7-40); Albumin 3.5 g/dL (3.2-4.8); Alkaline Phosphatase 141 U/L (46-116); Anion Gap 8 (5-15); Aspartate Aminotransferase 13 U/L (13-40); BUN/Creatinine Ratio 16.4 (10.0-20.0); Bilirubin, Total 0.6 mg/dL (0.2-1.0); Blood Urea Nitrogen 10 mg/dL (9-23); Calcium 8.7 mg/dL (8.7-10.4); Carbon Dioxide 23 mmol/L (20-30); Chloride 108 mmol/L (98-107); Glucose 77 mg/dL (74-106); Potassium 3.4 mmol/L (3.5-5.1); Sodium 139 mmol/L (136-145); Total Protein 6.2 g/dL (5.7-8.2)
[2024-05-27 16:42] LABS: Partial Thromboplastin Time 27.6 SEC (24.5-34.5); Prothrombin Time 10.6 sec (9.3-11.8)
[2024-05-27 16:46] LABS: Amphetamine Screen, Urine Neg (NEGATIVE); Barbiturate Scree,Urine Neg (NEGATIVE); Benzodiazephine Screen, Urine Neg (NEGATIVE); Cocaine Screen, Urine Neg (NEGATIVE); Opiate Scree,Urine Neg (NEGATIVE); Phencyclidine Screen, Urine Neg (NEGATIVE)
[2024-05-27 16:47] LABS: Cannabinoid Screen, Urine Neg (NEGATIVE)
[2024-05-28] VITALS (16 sets, daily range): BP systolic 101–134; BP diastolic 58–86; PULSE 62–99; RESP 16; TEMP 97.3–98.3; O2SAT 96–100
[~2024-05-28] VITALS: Ht 177.8 cm; Wt 151.5 kg
[2024-05-28] MEDS: LACTATED RINGER'S 1,000 ML IV ONE (05:45)
[2024-05-28] MEDS: SODIUM CITR/CITRIC ACID ORAL SOLN 30 ML PO ONE (05:45)
[2024-05-28] MEDS: ceFAZolin 2 GM/D5W50ml 50 ML IV ONE (06:47)
[2024-05-28] MEDS ORDERED: MORPHINE SULF PF 5 MG/10 ML VIAL ONE (07:08)
[2024-05-28] MEDS: METOCLOPRAMIDE HCL 5MG/ml INJ 2ml VIAL IV ONE (07:09)
[2024-05-28] MEDS ORDERED: fentaNYL CITRATE 100 MCG/2 ML VL ONE (07:09)
[2024-05-28] MEDS: LACTATED RINGER'S 1,000 ML IV SCH (07:14)
[2024-05-28] MEDS ORDERED: EPINEPHrine HCL 1 MG/1 ML AMP ONE (07:15)
[2024-05-28] MEDS: FAMOTIDINE (10MG/ML) 2ML VL IV ONE (07:20)
[2024-05-28] MEDS ORDERED: PHENYLEPHRINE HCL 10 MG/ML VL ONE (08:28)
[2024-05-28] MEDS ORDERED: ePHEDrine SULFATE 50 MG/ML AMP IV PRN ×2 (09:15→11:15)
[2024-05-28] MEDS ORDERED: fentaNYL CITRATE 100 MCG/2 ML VL IV PRN (09:15)
[2024-05-28] MEDS ORDERED: ONDANSETRON HCL 4 MG/2 ML VIAL IV PRN (11:15)
[2024-05-28] MEDS: GUM (CHEWING) 1 GUM CHEW CHEW ONE (11:15)
[2024-05-28] MEDS ORDERED: KETOROLAC TROMETH 30 MG/ML 1ML VIAL IV PRN (11:15)
[2024-05-28] MEDS: ONDANSETRON HCL 4 MG/2 ML VIAL IV ONE (11:15)
[2024-05-28] MEDS: ACETAMINOPHEN IV 1000 MG/100ML (10MG/ML) IV PRN (11:46)
[2024-05-28] MEDS: ePHEDrine SULFATE 50 MG/ML AMP IM ONE (13:24)
[2024-05-28] MEDS: DexAMETHasone INJECTION 10 MG in D5W 5% 50 ML IV ONE (15:08)
[2024-05-28] MEDS: ceFAZolin 1GM/50ML 50 ML IV SCH (15:32)
[2024-05-28 20:27] LABS: Basophils # (auto) 0 10 ^3/uL (0-0.2); Eosinophils # (auto) 0 10 ^3/uL (0-0.8); Hemoglobin 10.7 g/dL (12.2-16.2); Monocytes # (auto) 0.1 10 ^3/uL (0-1.3); Nucleated Red Blood Cells % 0.1 %
[2024-05-28 20:28] LABS: Basophils % (auto) 0.1 % (0.0-2.0); Hematocrit 34.4 % (36.0-46.0); Lymphocytes # (auto) 0.7 10 ^3/uL (0.4-5.4); Lymphocytes % (auto) 5.1 % (10.0-50.0); Mean Corpuscular Hemoglobin 22.3 pg (28.0-32.0); Monocytes % (auto) 0.8 % (0.0-12.0); Platelet Count (auto) 245 10^3/uL (140-450); Red Blood Cells 4.78 10^6/uL (4.0-5.20); White Blood Cell 12.8 10^3/uL (4.4-10.8)
[2024-05-28 21:26] LABS: Anisocytosis Slight; Hypochromia Moderate; Ovalocytes FEW
[2024-05-28 21:27] LABS: Platelet Estimate Adequate
[2024-05-29] VITALS (12 sets, daily range): BP systolic 104–127; BP diastolic 58–83; PULSE 64–79; RESP 16–18; TEMP 97.5–99; O2SAT 96–100
[2024-05-29] MEDS ORDERED: BISACODYL 10 MG RECT SUPP PR PRN (07:45)
[2024-05-29] MEDS ORDERED: HYDROcodone-ACET 5/325MG TAB PO PRN (07:45)
[2024-05-29 08:07] LABS: RPR Non Reactive (Non Reactive)
[2024-05-29] MEDS: DOCUSATE SOD 100 MG CAP PO SCH (10:53)
[2024-05-29] MEDS: SIMETHICONE 80 MG CHEWABLE TABLET PO SCH (10:53)
[2024-05-29] MEDS: DOCUSATE CALCIUM 240 MG CAP PO SCH (10:53)
[2024-05-29] MEDS: IBUPROFEN 800 MG TAB PO PRN (14:42)
[2024-05-29] MEDS: HYDROcodone-ACET 5/325MG TAB PO PRN (20:04)
[2024-05-29 20:13] LABS: Basophils % (auto) 0.5 % (0.0-2.0); Eosinophils # (auto) 0 10 ^3/uL (0-0.8); Hemoglobin 9.2 g/dL (12.2-16.2)
[2024-05-29 20:14] LABS: Basophils # (auto) 0.1 10 ^3/uL (0-0.2); Eosinophils % (auto) 0.3 % (0.0-7.0); Hematocrit 29.6 % (36.0-46.0); Lymphocytes # (auto) 2.2 10 ^3/uL (0.4-5.4); Lymphocytes % (auto) 23.8 % (10.0-50.0); Mean Corpuscular Hemoglobin 22.2 pg (28.0-32.0); Mean Corpuscular Hgb Conc. 31.2 g/dL (32.0-36.0); Mean Corpuscular Volume 71.2 fL (80.0-100.0); Monocytes # (auto) 0.5 10 ^3/uL (0-1.3); Monocytes % (auto) 5.7 % (0.0-12.0); Neutrophils # (auto) 6.4 10 ^3/uL (1.6-8.6); Neutrophils % (auto) 69.7 % (37.0-80.0); Nucleated Red Blood Cells % 0.1 %; Platelet Count (auto) 264 10^3/uL (140-450); Red Blood Cells 4.15 10^6/uL (4.0-5.20); White Blood Cell 9.2 10^3/uL (4.4-10.8)
[2024-05-29 20:17] LABS: Red Cell Distribution Width 21.1 % (11.8-14.3)
[2024-05-30 03:30] VITALS: BP 98/69; PULSE 96; RESP 18; TEMP 98.2; O2SAT 97
[2024-05-30 06:50] VITALS: BP 114/74; PULSE 68; RESP 18; TEMP 98.7; O2SAT 98
[2024-05-30] MEDS ORDERED: HYDR-4902 PO (07:53)
[2024-05-30] MEDS ORDERED: IBUP-1455 PO (07:53)
[2024-05-30 11:00] VITALS: BP 112/69; PULSE 70; RESP 18; TEMP 98.7; O2SAT 99
[2024-05-30 11:25] VITALS: BP 112/69; PULSE 69; RESP 18; TEMP 98.7; O2SAT 99
[2024-05-30 11:36] VITALS: BP 112/69; PULSE 70; RESP 18; TEMP 98.7; O2SAT 99
== END 2024-05-30 11:25 | disposition home or self-care (01) | DRG 788 ==
LOC: LDRP 05:25 → UNDOADMIN 05:25 → LDRP 05:36
PROVIDERS: ADMIT Obstetrics & Gynecology; ATTEND Obstetrics & Gynecology
PROC: 10D00Z1 Extraction of Products of Conception, Low, Open Approach (ICD-10-PCS; principal; 2024-05-28 07:30)
DX: O34.211 Maternal care for low transverse scar from previous cesarean delivery (principal); Z37.0 Single live birth; O99.02 Anemia complicating childbirth; Z3A.39 39 weeks gestation of pregnancy; O34.03 Maternal care for unspecified congenital malformation of uterus, third trimester; Q51.3 Bicornate uterus; O99.214 Obesity complicating childbirth; E66.01 Morbid (severe) obesity due to excess calories; O32.1XX0 Maternal care for breech presentation, not applicable or unspecified; D50.9 Iron deficiency anemia, unspecified; O69.81X0 Labor and delivery complicated by cord around neck, without compression, not applicable or unspecified; O34.83 Maternal care for other abnormalities of pelvic organs, third trimester; N83.202 Unspecified ovarian cyst, left side
CPT/HCPCS: 36415; 59025; 80053; 80307; 81001; 81002; 85025; 85610; 85730; 86592; 86803; 86850; 86900; 86901; 94760; 94762; 96360; 96361; 96365; 96366; 96372; G0378; J0131; J0171; J1100; J2405; J3490; J7060

== ENCOUNTER → 2024-08-16 | Outpatient (CLI) | payer BC ==
[~2024-08-16] MED LIST changes: +HYDR-4902 PO; +IBUP-1455 PO
[2024-08-16 12:22] LABS: Urine Bacteria None Seen /hpf (None Seen)
[2024-08-16 12:31] LABS: Basophils # (auto) 0 10 ^3/uL (0-0.2); Basophils % (auto) 0.5 % (0.0-2.0); Eosinophils # (auto) 0 10 ^3/uL (0-0.8); Eosinophils % (auto) 0.6 % (0.0-7.0); Hematocrit 36.1 % (36.0-46.0); Lymphocytes # (auto) 1.8 10 ^3/uL (0.4-5.4); Lymphocytes % (auto) 29.7 % (10.0-50.0); Mean Corpuscular Hemoglobin 21.3 pg (28.0-32.0); Mean Corpuscular Hgb Conc. 30.6 g/dL (32.0-36.0); Mean Corpuscular Volume 69.6 fL (80.0-100.0); Monocytes # (auto) 0.4 10 ^3/uL (0-1.3); Monocytes % (auto) 6.2 % (0.0-12.0); Neutrophils # (auto) 3.8 10 ^3/uL (1.6-8.6); Nucleated Red Blood Cells % 0.1 %; Platelet Count (auto) 255 10^3/uL (140-450); Red Blood Cells 5.18 10^6/uL (4.0-5.20); Red Cell Distribution Width 18.9 % (11.8-14.3)
[2024-08-16 13:12] LABS: Alanine Aminotransferase 17 U/L (7-40); Albumin 4.1 g/dL (3.2-4.8); Alkaline Phosphatase 97 U/L (46-116); Anion Gap 8 (5-15); Aspartate Aminotransferase 17 U/L (13-40); BUN/Creatinine Ratio 18.7 (10.0-20.0); Blood Urea Nitrogen 14 mg/dL (9-23); Calcium 9.5 mg/dL (8.7-10.4); Carbon Dioxide 27 mmol/L (20-31); Chloride 106 mmol/L (98-107); Cholesterol 104 mg/dL (< 200); Glucose 88 mg/dL (74-106); HDL Cholesterol 35 mg/dL (40-59); LDL Cholesterol 64 mg/dL (< 100); Potassium 3.8 mmol/L (3.5-5.1); Sodium 141 mmol/L (136-145); Triglycerides 66 mg/dL (< 150)
[2024-08-16 13:13] LABS: Bilirubin, Total 0.7 mg/dL (0.2-1.0)
[2024-08-16 13:14] LABS: Urine Blood Negative /uL (Negative); Urine Clarity Clear (Clear); Urine Color Yellow (Yellow); Urine Mucus FEW (None Seen); Urine Protein, UAD TRACE (Negative); Urine Specific Gravity 1.036 (1.001-1.035); Urine Urobilinogen 2 mg/dL (Negative); Urine WBC 1 /hpf (0 - 5); Urine pH 5.5 (5.0-9.0)
== END | disposition home or self-care (01) ==
LOC: LAB 12:08
PROVIDERS: ATTEND Student in an Organized Health Care Education/Training Program
DX: R73.9 Hyperglycemia, unspecified (principal); R03.0 Elevated blood-pressure reading, without diagnosis of hypertension
CPT/HCPCS: 36415; 80053; 80061; 81001; 83036; 84443; 85025